=== PATIENT | female | born 1935 | race Caucasian/White ===

== ENCOUNTER 2019-11-09 13:57 | Observation (INO) | payer MEDICARE ==
[~2019-11-09] VITALS: Ht 172.7 cm; Wt 83.1 kg
[~2019-11-09 13:57] MED LIST: ACET325T14 PO; ALPR0.5T6 PO; ASPI-515 PO; CALCIUM CITRATE PO; ESCI10TA PO; IRON PO; LACT1CAP37 PO; LATA2.5D3 EACHEYE; LOVA10TA PO; MAGNESIUM PO; MERC50TA17 PO; NITR100C PO; TIMO5DRO5 EACHEYE; VITA1TAB19 PO; VITAMIN C PO; VITAMIN D3 PO; [UNRECOGNIZED DRUG - OTHER] PO
--- NOTE | 2019-11-09 14:32 | NUR ---
PT IN BED, DAUGHTER AT BEDSIDE. ATTACHED TO MONITORS. CALL LIGHT IN REACH. DENIES ANY NEEDS OR CONCERNS.
[2019-11-09 14:45] LABS: BASOPHILS # (AUTO) 0.02 x10^3/uL (0-0.1); BASOPHILS % (AUTO) 0 % (0-1); EOSINOPHILS % (AUTO) 2 % (1-7); LYMPHOCYTES % (AUTO) 17 % (22-44); MD NO; MEAN CORPUSCULAR HEMOGLOBIN 32.7 pg (27.0-34.8); MEAN CORPUSCULAR HGB CONC 33.1 g/dL (32.4-35.8); MEAN CORPUSCULAR VOLUME 98.8 fL (80-100); MEAN PLATELET VOLUME 6.5 fL (7.4-10.4); MONOCYTES # (AUTO) 0.32 x10^3/uL (0.2-0.8); MONOCYTES % (AUTO) 6 % (2-9); NEUTROPHILS # (AUTO) 3.92 x10^3/uL (1.8-6.8); NEUTROPHILS % (AUTO) 75 % (42-75); PLATELET COUNT 264 x10^3/uL (130-400); RED BLOOD COUNT 3.93 x10^6/uL (3.82-5.3)
[2019-11-09 14:56] LABS: ALBUMIN 3.1 g/dL (3.4-5.0); ANION GAP 7 mmol/L (5-15); CALCIUM 8.5 mg/dL (8.5-10.1); CHLORIDE 110 mmol/L (98-107)
[2019-11-09 15:01] LABS: ALANINE AMINOTRANSFERASE 15 U/L (12-78); ALKALINE PHOSPHATASE 35 U/L (45-117); BILIRUBIN,TOTAL 0.5 mg/dL (0.2-1.0); CREATININE 0.98 mg/dL (0.55-1.02); TOTAL PROTEIN 7.1 g/dL (6.4-8.2); TROPONIN I < 0.015 ng/mL (0.000-0.045)
--- NOTE | 2019-11-09 15:11 | NUR ---
PT RETURNED FROM CT AT THIS TIME, DENIES NEEDS, CALL LIGHT IN REACH.
[2019-11-09 15:55] LABS: MICROSCOPIC NOT IND
--- NOTE | 2019-11-09 17:21 | NUR ---
report to CURT Silveira. Hospitalist at bedside, EKG at bedside.
--- NOTE | 2019-11-09 17:38 | NUR ---
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 FAMILY ATTEMPTING TO GET AHOLD OF A WRITTEN COPY OF HER MEDICATION ORDERS. MED REC INCOMPLETE AT THIS TIME.
[2019-11-09] MEDS ORDERED: IBUPROFEN 600 MG TABLET PO PRN (18:00)
[2019-11-09] MEDS ORDERED: BISACODYL 10 MG SUPP PR PRN (18:00)
[2019-11-09] MEDS ORDERED: HYDROcodone/APAP 5/325 TABLET PO PRN (18:00)
[2019-11-09] MEDS ORDERED: ACETAMINOPHEN 325 MG TABLET PO PRN (18:00)
[2019-11-09] MEDS ORDERED: POLYETHYLENE GLYCOL 17 GM PACKET PO PRN (18:00)
[2019-11-09] MEDS ORDERED: ONDANSETRON ODT 4 MG PO PRN (18:00)
[2019-11-09] MEDS ORDERED: TRAZODONE 50MG TABLET PO PRN (18:00)
[2019-11-09] MEDS ORDERED: LABETALOL 5MG/ML, 20ML IVPush PRN (18:00)
[2019-11-09] MEDS ORDERED: DOCUSATE 100 MG CAPSULE PO PRN (18:00)
[2019-11-09] MEDS ORDERED: hydrALAzine 20 MG/ML, 1ML IVPush PRN (18:00)
[2019-11-09] MEDS ORDERED: ENALAPRILAT 1.25 MG/ML, 2ML IVPush PRN (18:00)
[2019-11-09 18:17] VITALS: BP 138/71
[2019-11-09] MEDS: HEPARIN 5,000 UNITS/ML, 1ML SQ SCH (18:47)
[2019-11-09 19:43] VITALS: BP 149/73
[2019-11-09] MEDS ORDERED: PANT20TA3 PO (19:55)
[2019-11-09] MEDS ORDERED: HYDR-826 PO (19:55)
[2019-11-09] MEDS ORDERED: LOVASTATIN 10 MG TABLET PO SCH (21:00)
[2019-11-09] MEDS ORDERED: LATANOPROST OPHTH 0.005%, 2.5ML EACHEYE SCH (21:00)
[2019-11-09] MEDS ORDERED: OMNIPAQUE 350 MG/ML, 75ML BOTTLE ONE (21:25)
[2019-11-09] MEDS ORDERED: NITROFURANTOIN (MACROBID) 100 MG CAPSULE PO SCH (23:30)
[2019-11-10 00:20] VITALS: BP 134/75
[2019-11-10] MEDS: HEPARIN 5,000 UNITS/ML, 1ML SQ SCH ×2 (02:47→11:13)
[2019-11-10 06:24] LABS: CHOL/HDL RATIO 4.1; LDL/HDL RATIO 2.4 (0.5-3.0)
[2019-11-10 08:12] VITALS: BP 115/73
[2019-11-10] MEDS: NITROFURANTOIN MC SCH ×2 (08:44→15:06)
[2019-11-10] MEDS ORDERED: MERCAPTOPURINE 50 MG TABLET PO SCH (09:00)
[2019-11-10] MEDS ORDERED: ESCITALOPRAM 10MG TABLET PO SCH (09:00)
[2019-11-10] MEDS ORDERED: GADOTERATE 10 MMOL/20 ML SYR ONE (14:14)
[2019-11-10] MEDS ORDERED: ATOR-2 PO (15:49)
[2019-11-10] MEDS ORDERED: ASPI81TA45 PO (15:49)
[2019-11-10] MEDS ORDERED: ATORVASTATIN 80 MG TABLET PO SCH (21:00)
[2019-11-11] MEDS ORDERED: PANTOPRAZOLE 20MG TABLET PO SCH (06:00)
[2019-11-11] MEDS ORDERED: ASPIRIN 81 MG TABLET EC PO SCH (06:00)
== END 2019-11-10 17:38 | disposition home or self-care (01) ==
LOC: ED 17:13 → INTOOBSV 17:40 → EDIP 17:40 → 4WST 18:10
PROVIDERS: ADMIT Family Medicine; ATTEND Family Medicine
DX: R13.10 Dysphagia, unspecified (principal); R29.810 Facial weakness; R20.0 Anesthesia of skin; E78.5 Hyperlipidemia, unspecified; G47.00 Insomnia, unspecified; K58.9 Irritable bowel syndrome, unspecified; N39.0 Urinary tract infection, site not specified; I63.9 Cerebral infarction, unspecified; I48.91 Unspecified atrial fibrillation; H02.409 Unspecified ptosis of unspecified eyelid; R42 Dizziness and giddiness; R20.2 Paresthesia of skin; K21.9 Gastro-esophageal reflux disease without esophagitis; K75.4 Autoimmune hepatitis; F41.8 Other specified anxiety disorders; I21.4 Non-ST elevation (NSTEMI) myocardial infarction; E66.9 Obesity, unspecified; I25.2 Old myocardial infarction; I45.10 Unspecified right bundle-branch block; Z86.72 Personal history of thrombophlebitis; Z86.2 Personal history of diseases of the blood and blood-forming organs and certain disorders involving the immune mechanism; Z86.73 Personal history of transient ischemic attack (TIA), and cerebral infarction without residual deficits; Z79.899 Other long term (current) drug therapy; Z85.528 Personal history of other malignant neoplasm of kidney; Z87.891 Personal history of nicotine dependence
CPT/HCPCS: 36415; 70450; 70496; 70553; 80053; 80061; 81003; 83036; 84443; 84484; 85025; 93005; 93306; 93880; 96372; 99285; A9575; G0378; J1644; Q9967